=== PATIENT | female | born 1955 | race Caucasian/White ===

== ENCOUNTER → 2017-06-11 | Outpatient (CLI) | payer BC, OTHER | END | disposition home or self-care (01) | LOC: PCVCIMAG 10:18 | DX: I65.23 Occlusion and stenosis of bilateral carotid arteries (principal); I25.10 Atherosclerotic heart disease of native coronary artery without angina pectoris; I10 Essential (primary) hypertension; E78.00 Pure hypercholesterolemia, unspecified; I73.9 Peripheral vascular disease, unspecified; I71.4 Abdominal aortic aneurysm, without rupture; I77.9 Disorder of arteries and arterioles, unspecified; M19.90 Unspecified osteoarthritis, unspecified site; F17.210 Nicotine dependence, cigarettes, uncomplicated; Z98.890 Other specified postprocedural states; Z79.899 Other long term (current) drug therapy | CPT/HCPCS: 80061; 93005; 93880; 93978; G0463 ==

== ENCOUNTER → 2017-12-20 | Outpatient (CLI) | payer BC, OTHER | END | disposition home or self-care (01) | LOC: PCVCIMAG 14:46 | DX: I25.10 Atherosclerotic heart disease of native coronary artery without angina pectoris (principal); I10 Essential (primary) hypertension; I71.4 Abdominal aortic aneurysm, without rupture; I07.1 Rheumatic tricuspid insufficiency; I73.9 Peripheral vascular disease, unspecified; E78.5 Hyperlipidemia, unspecified | CPT/HCPCS: 93306 ==

== ENCOUNTER → 2018-02-08 | Outpatient (CLI) | payer BC, OTHER ==
--- NOTE | 2018-02-08 16:50 | PCVCIMAG ---
APPROVED REPORT Imaging Protocol: Rest Tc-99m/Stress Tc-99m 1 day Study performed: 02/08/2018 10:59:51 Indication: CAD , Fatigue Patient Location: Out-Patient Stress Nurse: Rosa García RN [place] Tech:Geno Colten [facility] Ht: 5 ft 6 in Wt: 210 lbs BSA: 2.04 m2 HR: 70 bpm BP: 104/57 mmHg BMI: 33.8 Rhythm: NSR Medical History Medical History: AGE, HYPERLIPIDEMIA, HTN, PVD, CVD, DVT Medications: XANAX, LOSARTAN, ROSUVASTATIN, TORSEMIDE Allergies: ASA, AUGMENTIN, HYDROCODONE Previous Cardiac Procedures: PCI RCI '06, AAA S/P STENT Exercise History: Sedentary Physical Disabilities: ANKLES Resting Data Rest SPECT myocardial perfusion imaging was performed in supine position 60 minutes following the intravenous injection of 11.1 mCi of Tc-99m Sestamibi. Time of rest injection: 1010 Date: 02/08/2018 Administration Route: IV Administration Site: Left AC Pharmacologic Stress Pharmacologic stress test was performed by injecting Regadenoson 0.4 mg IV push over 10-15 seconds immediately followed by the intravenous injection of 33.2 mCi of Tc-99m Sestamibi. Time of stress injection: 1155 Date: 02/08/2018 Administration Route: IV Administration Site: Left AC The images were gated to evaluate regional wall motion and calculate left ventricular ejection fraction. Stress Test Details Stress Test: Pharmacologic stress testing performed using 0.4 mg of regadenoson per 5 mL given IV over 10 seconds. Reason for pharmacologic stress test: physical limitation. HRMax Heart Rate (APMHR): 156 bpm Resting HR: 70 bpmTarget HR (85% APMHR): 132 bpm Max HR Achieved: 97 bpm % of APMHR: 62 Recovery HR: 87 bpm BP Resting BP: 104/57 mmHg Recovery BP: 106/52 mmHg ECG Resting ECG: NSR Stress ECG: NSR Arrhythmia: RARE PVC'S Recovery ECG: NSR Clinical Reason for Termination: Completed protocol Stress Symptoms: LIGHTHEADED Stress ECG Conclusion ECG: Non-ischemic Study Quality Study: Good Study Data Post stress, the left ventricular ejection was 84%.. SSS: 12 SRS: 9 SDS: 7 TID = 1.03. Perfusion No evidence of stress induced ischemia or prior myocardial infarction. Wall Motion Normal left ventricular size and function with no regional wall motion abnormalities. Nuclear Conclusion No evidence of stress induced ischemia or prior myocardial infarction. Normal left ventricular size and function with no regional wall motion abnormalities. Post stress, the left ventricular ejection was 84%. No change since prior study dated April 2016. Interpreted by: Rakesh Price MD Electronically Approved: 02/08/2018 14:31:13 <Conclusion> ECG: Non-ischemic
== END | disposition home or self-care (01) ==
LOC: PCVCIMAG 12:49
PROVIDERS: ATTEND Internal Medicine Cardiovascular Disease
DX: I25.10 Atherosclerotic heart disease of native coronary artery without angina pectoris (principal); I10 Essential (primary) hypertension; I73.9 Peripheral vascular disease, unspecified
CPT/HCPCS: 78452; 93017; A9500